=== PATIENT | female | born 1960 | race Two or more races ===

== ENCOUNTER 2017-10-09 08:09 | Inpatient (IN) | payer OTHER ==
[2017-10-09] MEDS ORDERED: Sodium Chloride 0.9% 1,000 ML IV STA ×3 (08:23→10:09)
[2017-10-09] MEDS ORDERED: Albuterol-Ipratrop 3 mg / 0.5 (3 ml) UD IH STA (08:23)
[2017-10-09 08:26] VITALS: TEMP 97.5
--- NOTE | 2017-10-09 08:37 | ED PDOC ---
HPI: SOB/CHF/COPD Time Seen by Provider: 10/09/17 08:13 Chief Complaint (Nursing): Shortness Of Breath Chief Complaint (Provider): Shortness of breath, cough, fever History Per: Patient History/Exam Limitations: no limitations Onset/Duration Of Symptoms: Days (x3) Current Symptoms Are (Timing): Still Present Additional Complaint(s): 57 year old female with a past medical history of lupus, presents to the emergency department complaining of shortness of breath associated with cough and fever for the past 3 days. Patient was seen at Urgent Care and started on prednisone for two days, shows no improvement. PMD: Provider to be determined Past Medical History Reviewed: Historical Data, Nursing Documentation, Vital Signs Vital Signs: Last Vital Signs Temp 97.5 F L 10/09/17 08:23 Pulse 123 H 10/09/17 08:23 Resp 37 H 10/09/17 09:03 BP 103/65 10/09/17 08:23 Pulse Ox 100 10/09/17 09:03 - Medical History Other PMH: Lupus - Family History Family History: States: Unknown Family Hx - Social History Current smoker - smoking cessation education provided: No Alcohol: None Drugs: Denies - Allergies Allergies/Adverse Reactions: Allergies Allergy/AdvReac Type Severity Reaction Status Date / Time Penicillins Allergy RASH Verified 10/09/17 08:23 Review of Systems ROS Statement: Except As Marked, All Systems Reviewed And Found Negative Constitutional: Positive for: Fever Cardiovascular: Negative for: Chest Pain Respiratory: Positive for: Cough, Shortness of Breath, Sputum (dark) Gastrointestinal: Negative for: Nausea, Vomiting Physical Exam - Reviewed Nursing Documentation Reviewed: Yes Vital Signs Reviewed: Yes - Physical Exam Appears: Positive for: Non-toxic, No Acute Distress Head Exam: Positive for: ATRAUMATIC, NORMAL INSPECTION, NORMOCEPHALIC Skin: Positive for: Normal Color, Warm, Dry Eye Exam: Positive for: EOMI, Normal appearance, PERRL Neck: Positive for: Normal, Painless ROM Cardiovascular/Chest: Positive for: Tachycardia Respiratory: Positive for: Rhonchi (right base), Respiratory Distress (Mild). Negative for: Wheezing Gastrointestinal/Abdominal: Positive for: Soft. Negative for: Tenderness Extremity: Positive for: Normal ROM. Negative for: Tenderness, Swelling - ECG O2 Sat by Pulse Oximetry: 79 (RA) Pulse Ox Interpretation: Normal - Progress Re-evaluation Time: 09:16 Condition: Unchanged - Critical Care Total Time (In Min): 30 Medical Decision Making Medical Decision Making: Time: 8:23 Initial Plan: --VBG Shock Panel --EKG --CMP --Urine dipstick --EKG-ED --CBC with differential --D Dimer --Portable Chest X-Ray --Duoneb 3mg/0.5 mg 3 mL IH --Sodium Chloride 0.9% 1000 mL IV 100 mls/hr --Blood Culture --Peak Flow --Influenza A B Scribe Attestation: Documented by Katharine Saldivar, acting as a scribe for Helio Perez MD Provider Scribe Attestation: All medical record entries made by the Scribe were at my direction and personally dictated by me. I have reviewed the chart and agree that the record accurately reflects my personal performance of the history, physical exam, medical decision making, and the department course for this patient. I have also personally directed, reviewed, and agree with the discharge instructions and disposition Disposition - Clinical Impression Clinical Impression: Respiratory distress, Pneumonia, Sepsis, Lupus (systemic lupus erythematosus) - Patient ED Disposition Is Patient to be Admitted: Yes - Disposition Disposition Time: 09:17 Condition: GUARDED Forms: [facility] ([place]) - Pt Status Changed To: Hospital Disposition Of: Inpatient - Admit Certification Admit to Inpatient:: After my assessment, the patient will require hospitalization for at least two midnights. This is because of the severity of symptoms shown, intensity of services needed, and/or the medical risk in this patient being treated as an outpatient. - POA Present On Arrival: None
[2017-10-09 09:03] LABS: VENOUS BLOOD GAS BASE EXCESS -11.6 mmol/L (0.0-2.0); VENOUS BLOOD GAS PCO2 75 mmHg (40-60); VENOUS BLOOD GAS PO2 21 mm/Hg (30-55); VENOUS BLOOD PH 7.04 (7.32-7.43)
[2017-10-09 09:09] LABS: BASO % 0.2 % (0.0-2.0); EOS % 0.3 % (0.0-4.0); HEMOGLOBIN 14.1 g/dL (12.0-16.0); LYMPH # 0.9 K/uL (1.0-4.3); LYMPH % 45.7 % (20.0-40.0); MEAN CORPUSCULAR HEMOGLOBIN 26.2 pg (27.0-31.0); MEAN PLATELET VOLUME 10.2 fl (7.2-11.7); MONO # 0.2 K/uL (0.0-0.8); MONO % 8.5 % (0.0-10.0); NEUT # 0.9 K/uL (1.8-7.0); NEUT % 45.3 % (50.0-75.0); NRBC % 0.5 % (0.0-0.0); RBC 5.38 Mil/uL (3.80-5.20); RED CELL DISTRIBUTION WIDTH 15.4 % (11.5-14.5)
[2017-10-09] MEDS ORDERED: Aztreonam 1 GM in Sodium Chloride 0.9% 100 ML IVPB STA (09:14)
[2017-10-09 09:18] LABS: ALB/GLOB RATIO 1.2 (1.0-2.1); ALBUMIN 3.9 g/dL (3.5-5.0); CALCIUM 9.5 mg/dL (8.4-10.2)
--- NOTE | 2017-10-09 09:25 | RAD ---
HISTORY: cough COMPARISON: No prior. FINDINGS: LUNGS: Diffuse bilateral nodular appearing infiltrates right greater than left with some sparing left upper lobe. . PLEURA: No significant pleural effusion identified, no pneumothorax apparent. CARDIOVASCULAR: Normal. OSSEOUS STRUCTURES: No significant abnormalities. VISUALIZED UPPER ABDOMEN: Normal. OTHER FINDINGS: None. IMPRESSION: Diffuse bilateral nodular infiltrates with some sparing left upper lobe.
[2017-10-09 10:32] LABS: PLATELET COUNT 135 K/uL (130-400)
[2017-10-09] MEDS ORDERED: Sodium Chloride 0.9% 50 ML IV ONE (10:51)
[2017-10-09] MEDS ORDERED: Iodixanol 320 MG/ML 100 ML BOTTLE IV ONE (10:51)
[2017-10-09 10:57] LABS: BANDS 5 % (0-2); LYMPHOCYTE 48 % (20-50); METAMYELOCYTE 1 % (0-0); MONOCYTE 2 % (0-10); MYELOCYTE 5 % (0-0); NEUTROPHIL 38 % (42-75); NUCLEATED RED BLOOD CELL 1 % (0-0); PLATELET ESTIMATE NORMAL (NORMAL); REACTIVE LYMPHOCYTES 1 % (0-0); TOTAL CELLS COUNTED 100
[2017-10-09 10:59] LABS: ANISOCYTOSIS SLIGHT; GIANT PLATELETS PRESENT; PLATELET CLUMPS PRESENT
[2017-10-09] MEDS ORDERED: Propofol 10 mg/ml Inj (20 ML) IV ONE ×4 (11:36→14:37)
[2017-10-09] MEDS ORDERED: Etomidate 20 mg/10ml Inj IV ONE ×2 (11:36→11:56)
[2017-10-09] MEDS ORDERED: Propofol 10 mg/ml Inj (100 ml) IV SCH (11:45)
[2017-10-09 11:49] LABS: ABG ALLEN TEST YES; ARTERIAL BLOOD GAS HCO3 15.1 mmol/L (21-28); ARTERIAL BLOOD GAS O2 SAT 100.8 % (95-98); ARTERIAL BLOOD GAS PCO2 60 mm/Hg (35-45); ARTERIAL BLOOD GAS PH 7.08 (7.35-7.45); ARTERIAL BLOOD GAS PO2 160 mm/Hg (80-100); ARTERIAL BLOOD GAS TCO2 19.6 mmol/L (22-28)
[2017-10-09] MEDS ORDERED: Propofol 10 mg/ml 1,000 MG/100 ML VIAL ONE (11:56)
[2017-10-09] MEDS ORDERED: Propofol 10 mg/ml Inj (20 ML) ONE (11:57)
[2017-10-09] MEDS ORDERED: Azithromycin 500 MG in Sodium Chloride 0.9% 250 ML IVPB SCH (12:00)
[2017-10-09 13:02] LABS: SQUAMOUS EPITHIAL 1 /hpf (0-5); URINE AMORPHOUS SEDIMENT RARE /ul (<OCC); URINE BACTERIA RARE (<OCC); URINE BILIRUBIN NEGATIVE (NEGATIVE); URINE BLOOD MODERATE (NEGATIVE); URINE CLARITY CLOUDY (Clear); URINE COLOR YELLOW (YELLOW); URINE GLUCOSE (UA) NEG (Normal); URINE LEUKOCYTE ESTERASE NEG Leu/uL (Negative); URINE NITRATE NEGATIVE (NEGATIVE); URINE PROTEIN 100 mg/dL (NEGATIVE); URINE UROBILINOGEN 0.2-1.0 mg/dL (0.2-1.0)
[2017-10-09 14:20] LABS: INR 1.8 (0.9-1.2); PROTHROMBIN TIME 20.6 Seconds (9.8-13.1)
--- NOTE | 2017-10-09 14:27 | CT ---
PROCEDURE: CT Chest with contrast (Pulmonary Angiogram) HISTORY: Elevated d dimer COMPARISON: Comparison made with prior chest radiograph dated 10/09/2017 TECHNIQUE: Axial computed tomography images were obtained of the chest in the pulmonary arterial phase of enhancement. Coronal and sagittal reformatted images were created and reviewed. Intravenous contrast dose: 99 Radiation dose: Total exam DLP = 509.9 mGy-cm. This CT exam was performed using one or more of the following dose reduction techniques: Automated exposure control, adjustment of the mA and/or kV according to patient size, and/or use of iterative reconstruction technique. FINDINGS: In situ ETT, tip of which lies well above george. . PULMONARY ARTERIES: The visualized pulmonary trunk, right and left main, lobar, segmental and proximal subsegmental branches of the pulmonary arteries appear well opacified with no definitive filling defects seen to suggest acute central pulmonary embolus. Pulmonary trunk measures approximately 2.7 cm. AORTA: No acute findings. No thoracic aortic aneurysm. Ascending thoracic aorta measures approximately 3.4 cm and descending thoracic aorta measures approximately 2.15 cm. LUNGS: Multiple nodular opacities are seen in the upper lobes right greater than left with some sparing of the left upper lobe/ lung apex. Changes become more confluent more inferiorly in the upper lobes. . Large area of consolidation seen in the right posterior lower lung zone with air bronchograms consistent with atelectasis and suspected common comminuted confluent infiltrates. Nodular infiltrates seen throughout the remaining right lower lobe. Similar changes seen in the middle lobe and lingular regions. Findings most likely represent diffuse bilateral pneumonia however the possibility of underlying parenchymal nodules or masses not completely excluded Repeat CT scan chest following treatment recommended to exclude any left underlying parenchymal nodules or masses. PLEURAL SPACES: Unremarkable. No effusion or pneumothorax. HEART: The heart size is within the range of normal. No significant pericardial effusion. LYMPH NODES: No significant mediastinal or hilar adenopathy. . BONES, CHEST WALL: Mild multilevel degenerative spondylosis of the thoracic spine. There are no acute compression fractures no retropulsed fragments. OTHER FINDINGS: Unremarkable. IMPRESSION: No evidence of acute central pulmonary embolus. Extensive nodular infiltrates seen in the upper lobes. Changes become more confluent more inferiorly in the upper lobes. . Large area of consolidation seen in the right posterior lower lung zone with air bronchograms consistent with atelectasis and suspected common comminuted confluent infiltrates. Nodular infiltrates seen throughout the remaining right lower lobe. Similar changes seen in the middle lobe and lingular regions. Findings most likely represent diffuse bilateral pneumonia however the possibility of underlying parenchymal nodules or masses not completely excluded Repeat CT scan chest following treatment recommended to exclude any left underlying parenchymal nodules or masses. Case discussed Dr. Perez at approximately 02:15 p.m. with written down and read back verification.
--- NOTE | 2017-10-09 14:35 | CARD ---
APPROVED REPORT EKG Measurement Heart [id number] <Conclusion> Sinus tachycardia Possible Left atrial enlargement Prolonged QT Abnormal ECG
[2017-10-09 14:36] LABS: MAGNESIUM 1.9 MG/DL (1.6-2.3)
[2017-10-09 16:35] VITALS: BP 88/56
--- NOTE | 2017-10-09 16:36 | RAD ---
HISTORY: post intubation COMPARISON: No prior. FINDINGS: Interval placement ETT, tip of which lies approximately 7.48 cm above george. Interval placement right IJ central venous line with tip in the SVC -RA junction LUNGS: Re- demonstrated are diffuse bilateral infiltrates with some relative sparing left apex PLEURA: No significant pleural effusion identified, no pneumothorax apparent. CARDIOVASCULAR: Normal. OSSEOUS STRUCTURES: No significant abnormalities. VISUALIZED UPPER ABDOMEN: Normal. OTHER FINDINGS: None. IMPRESSION: Interval placement ETT and right subclavian line as described above Diffuse bilateral infiltrates with some relative sparing left lung apex
[2017-10-09 17:21] VITALS: PULSE 135; RESP 14; O2SAT 96
--- NOTE | 2017-10-09 17:34 | CP.PCM.PRO ---
Pronouncement of Note - Pronouncement Time Time of Pronouncement of : 16:05 - Notifications Pronouncement Notifications: Family Notified, Atending Notified Flake Miller Helper Notified: Yes - Autopsy Autopsy Requested: Yes (released)
--- NOTE | 2017-10-09 20:54 | PN ---
CARDIOPULMONARY RESUSCITATION NOTE DATE: 10/09/2017 The patient is in room 430. SUBJECTIVE: A 57-year-old female admitted with acute respiratory failure, intubated on assisted mechanical ventilation secondary to sepsis, bilateral pneumonia, history of systemic lupus erythematosus. On arrival to ICU on transferring to the bed, the patient was noted to be in pulseless electrical activity with no pulse palpable. Sandor monroy was then called. CPR initiated. ACLS protocol followed. Continued for 35 minutes. The patient remained in pulseless electrical activity with no pulse palpable. No blood pressure. There was no spontaneous breath noted. Doppler showed no palpable pulse. No breath sounds heard on auscultation. No heart sounds. The patient is announced at 16:05 p.m. Family notified. Bryant Fragoso MD
--- NOTE | 2017-10-11 09:22 | CON ---
DATE: 10/09/2017 CRITICAL CARE CONSULTATION HISTORY OF PRESENT ILLNESS: The patient in ER, being admitted to ICU bed 430. Time spent 50 minutes. The patient is seen and examined at the bedside in the Emergency Room, limited history from the patient as she is in respiratory distress on BiPAP. Events in the Emergency Room reviewed, discussed with Dr. Perez. Ms. Ruiz is a 57-year-old female presented to Emergency Room complaining of progressively worsening shortness of breath. Reportedly, the patient was seen in Urgent Care Center 3-4 days prior to arrival. The patient was given prednisone tablet and bronchodilator. The patient was advised to return if was not feeling better. In ER, the patient's vital signs showed heart rate of 118, respiratory rate 28, blood pressure 103/65, mean arterial pressure 77. Weight 140 pounds. Temperature 97.5. In ER, the patient's history is significant for lupus, diagnosed years ago, has been on treatment, but the family was not sure about the compliance with treatment. She is also known to have CA of right breast status post surgical resection followed by chemo and radiation treatment. In ER, chest x-ray showed bilateral nodular infiltrate more on the right than left. Her initial lab data showed influenza A and B negative. WBC 2, hemoglobin of 14, hematocrit 44.2, platelet count of 135 with neutrophils 45.3, lymphocytes 45.7. PT 20.6, INR 1.8, PTT 55, D-dimer of 4952. Lactate showed 9.5. Code sepsis was called. She was treated with 2 liters of normal saline, given septic workup was completed, started on vancomycin 1 g, aztreonam and Zithromax. As the patient was noted to be in moderate to severe distress, the patient was intubated. A CT chest obtained and ruled out pulmonary embolism. CT chest showed extensive nodular infiltrate involving predominantly the upper lobes, more on the right than left. The patient ABG showed metabolic acidosis compliant with respiratory acidosis. Admitted to ICU. PAST MEDICAL HISTORY: As noted significant for CA of breast status post resection chemo and radiation. Also diagnosed with lupus erythematosus at that time, unclear details of the lupus, unclear details about the compliance with the medications. SOCIAL HISTORY: Denies no smoking or drinking alcohol. No recreational drug use. Lives alone in [place]. ALLERGY: PENICILLIN. FAMILY HISTORY: Not obtainable. PHYSICAL EXAMINATION: GENERAL: Middle-aged female. In moderate to respiratory distress. VITAL SIGNS: As noted temperature 97.5, heart rate 103, respiratory rate 33. Her medications in the ER include albuterol/Atrovent inhalation 3 mL x1, aztreonam 1 g IV stat, methylprednisolone 125 mg IV x1, potassium supplement, Diprivan drip, sodium chloride 3 liters, and vancomycin 1 g stat. On examination, the patient was transported to ICU on transferring from the stretcher to the bed. The patient was noted to lose pulse. Telemetry showed pulseless electrical activity, but no palpable pulse. No blood pressure. The CPR was initiated. ACLS protocol followed. The patient could not be resuscitated. Prior to ICU, in ER, the patient's vital signs as noted above. Examination of the head, eyes, ears, nose and Throat: Pupils are reactive. Conjunctivae suffused. Endotracheal tube in place. Pinkish secretions noted in the endotracheal tube. CHEST: Bilateral breath sounds. Fine crepitations at both bases. ABDOMEN: Bowel sounds are present and soft. EXTREMITIES: Showed no clubbing, cyanosis. SKIN: Shows a scar at the anterior chest wall, right IJ in place. LABORATORY DATA: As noted above. IMPRESSION: 1. Neuro: Septic, toxic encephalopathy. 2. Pulmonary: Acute hypoxic respiratory failure requiring high FiO2 with wide AA gradient. Chest x-ray and CT showed bilateral nodular infiltrate involving the right more than left. Suspected community-acquired pneumonia, underlying suspicion for nodular infiltrate. Given her CA breast in the past as well as involvement of the lupus erythematosus. 3. Cardiac: Tachycardic and borderline low blood pressure. 4. ID: Suspected bilateral superimposed pneumonia. Seen in the Urgent Care recently, was not on any antibiotic, suspect staph versus atypical pneumonia versus lupus involvement of the lung, status post Solu-Medrol, given antibiotic with vancomycin, aztreonam and Zithromax. Penicillin allergy noted. Infectious Disease consult requested. 5. Renal: Mild renal insufficiency. 6. Hematology: Leukopenia with neutropenia probably related to lupus and/or due to overwhelming sepsis given her low white count with neutrophils suspected neutropenia with underlying sepsis. The patient resuscitation was not successful. The patient was pronounced . Family was informed. ME contacted and body was released. Bryant Fragoso MD SHREYA
[2017-10-12 16:16] LABS: COMPLEMENT C4 32.2 mg/dL (14.0-44.0)
== END 2017-10-09 20:00 | DRG 871 ==
LOC: H.ER 08:09 → H.ERHOLD 09:15 → H.ICU/CCU 15:21
PROVIDERS: ADMIT Internal Medicine; ATTEND Internal Medicine
PROC: 0BH17EZ Insertion of Endotracheal Airway into Trachea, Via Natural or Artificial Opening (ICD-10-PCS; principal; 2017-10-09)
PROC: 5A1935Z Respiratory Ventilation, Less than 24 Consecutive Hours (ICD-10-PCS; 2017-10-09)
PROC: 5A12012 Performance of Cardiac Output, Single, Manual (ICD-10-PCS; 2017-10-09)
PROC: 05HM33Z Insertion of Infusion Device into Right Internal Jugular Vein, Percutaneous Approach (ICD-10-PCS; 2017-10-09)
DX: A41.9 Sepsis, unspecified organism (principal); J96.01 Acute respiratory failure with hypoxia; I46.9 Cardiac arrest, cause unspecified; G92 Toxic encephalopathy; J18.9 Pneumonia, unspecified organism; E87.4 Mixed disorder of acid-base balance; M32.9 Systemic lupus erythematosus, unspecified; Z85.3 Personal history of malignant neoplasm of breast; Z92.21 Personal history of antineoplastic chemotherapy; Z92.3 Personal history of irradiation; N28.9 Disorder of kidney and ureter, unspecified; Z88.0 Allergy status to penicillin; D70.3 Neutropenia due to infection